=== PATIENT | male | born 1970 | race Caucasian/White ===

== ENCOUNTER 2018-12-20 09:09 | Inpatient (IN) | payer OTHER ==
[~2018-12-20] VITALS: Ht 177.8 cm; Wt 72.0 kg
[2018-12-20] VITALS (14 sets, daily range): BP systolic 109–156; BP diastolic 71–93; PULSE 61–84; RESP 14–24; Ht 177.8 cm; Wt 72.0 kg
[2018-12-20] MEDS ORDERED: NITROGLYCERIN 2% 1 GM OINT PKT TD STA (09:12)
[2018-12-20] MEDS ORDERED: NITROGLYCERIN (SL) 0.4 MG TAB SL PRN (09:30)
--- NOTE | 2018-12-20 09:37 | CONS ---
Assessment/Plan Assessment/Plan Hospital Course (Demo Recall) Anterior STEMI: chest pain x 1 hour Tobacco use -to pipelines laborer for emergent cath/PCI Consultation Date/Type/Reason Admit Date/Time Date of Consultation: Dec 20, 2018 Type of Consult Cardiology Reason for Consultation STEMI Requesting Provider: TOSHIA LITTLE MD Date/Time of Note DATE: 12/20/18 TIME: 09:34 Hx of Present Illness 48 yo M with a h/o smoking presenting with chest pain x 1 hour. He was found to have an anterior STEMI. No prior cardiac history per HPI Past Medical History per HPI Home Meds No Active Prescriptions or Reported Meds Medications Current Medications Nitroglycerin (Nitroglycerin (Sl Tab) 0.4 Mg) 1 tab Q5M UP TO 3 DOSES PRN SL .CHEST PAIN; Start 12/20/18 at 09:30 Allergies: Coded Allergies: No Known Allergy (Unverified , 12/20/18) Exam/Review of Systems Vital Signs Vitals Vital Signs Date Temp Pulse Resp B/P (MAP) Pulse Ox O2 O2 Flow FiO2 Time Delivery Rate 12/20/18 98.1 68 18 127/92 100 09:14 (104) Exam Constitutional: alert, oriented, distress (mild ) Psych: no complaints, nl mood/affect Head: normocephalic, atraumatic Neck: No jvd Respiratory: clear to auscultation, diminished breath sounds Cardiovascular: regular rate and rhythm; No edema, No systolic murmur Gastrointestinal: soft, non-tender; No distended Neurological: nl mental status, nl speech Medications Medications Current Medications Nitroglycerin (Nitroglycerin (Sl Tab) 0.4 Mg) 1 tab Q5M UP TO 3 DOSES PRN SL .CHEST PAIN; Start 12/20/18 at 09:30 SHARIF JARQUIN Dec 20, 2018 09:37
[2018-12-20] MEDS ORDERED: BIVALIRUDIN 250MG /NS 50 ML 50 ML IVPB ONE ×2 (09:40→10:49)
[2018-12-20] MEDS ORDERED: IODIXANOL LOCM 100 ML BTL ONE ×2 (09:41→10:24)
[2018-12-20] MEDS ORDERED: LIDOCAINE 1% (MDV) 20 ML INJ ONE (09:41)
[2018-12-20] MEDS ORDERED: TICAGRELOR 90 MG TABLET ONE (09:41)
[2018-12-20] MEDS ORDERED: IOHEXOL 350MG/ML 50 ML BTL ONE (09:41)
[2018-12-20] MEDS ORDERED: MIDAZOLAM 1 MG/ML 2 ML INJ ONE (09:42)
[2018-12-20] MEDS ORDERED: NITROGLYCERIN (IC) 100 MCG/ML INJ ONE (10:12)
[2018-12-20] MEDS ORDERED: FENTAnyl 50 MCG/ML VIAL ONE (10:28)
--- NOTE | 2018-12-20 11:29 | OPR ---
Date/Time of Note Date/Time of Note DATE: 12/20/18 TIME: 11:11 Operative Report Procedure Date: Dec 20, 2018 Preoperative Diagnosis STEMI Postoperative Diagnosis STEMI Operation/Procedure Performed see details Surgeon see signature line [employer] none Anesthesia Type: moderate sedation Estimated Blood Loss: minimal Transfusion none Specimen none Grafts/Implants none Complications none Procedure Description Procedure Date:12/20/2018 [employer] Director/surgeon: Sharif Velasquez MD. Procedures Performed: 1)Left heart catheterization with selective left and right coronary angiography. 2)Balloon angioplasty and stenting of the prox LAD with an Siddharth 2.75 x 15 stent. 3)Balloon angioplasty and stenting of the prox OM with an Siddharth 2.5 x 12 stent. 4)Angiography of the right femoral artery and Perclose closure device Pre-operative Diagnosis:anterior STEMI Post-operative Diagnosis:STEMI Indications: 48 yo M presenting with chest pain and anterior STEMI by EKG Description of Procedure: After informed consent, the patient was brought to the cardiac catheterization lab. The procedure site was prepped and draped in usual manner. The patient was premedicated with versed 1mg. 5 mL lidocaine was injected into the right groin. Next using the Seldinger technique, the 6 barbadian sheath was inserted into the right femoral artery. Next using the EBU 3.5 guide and JR4, selective angiography of the left and right coronary arteries were obtained. The decision was made to proceed with PCI of the prox LAD. After appropriate anticoagulation and antiplatelets were given, the BMW angioplasty wire was advanced past the lesion. Next the 2.0 X 12 balloon was used to dilate the lesion times 2 at a maximum of 8 stas. Subsequently, the Resolute Borger 2.75 x 15 stent was advanced to the lesion and deployed at 12 stas. Next the stent was post dilated with the 3.0 X 12 noncompliant balloon times 1 at a maximum of 12 stas. Final angiography revealed PAOLO 3 flow, no edge dissection, and appropriate stent expansion. Next the decision was made to also intervene on the OM lesion due to the severity of the lesion. A BMW wire was used to cross the lesion. Next the 2.0 x 8 balloon was used to dilate the lesion. Next the Resolute Siddharth 2.5 x 12 stent was deployed at nominal pressure. The stent was well opposed and was not post dilated. The pigtail was then advanced into the ventricle and hemodynamics obtained. Left ventricle angiography was not obtained. Next all equipment was removed and hemostasis was achieved by Perclose closure device after angiography confirmed proper placement of the sheath. Findings: Anatomy/Hemodynamics: Left main: luminal irregularities LAD: prox subtotal thrombotic occlusion with PAOLO 1 flow Diagonal:luminal irregularities Circumflex:luminal irregularities Obtuse marginal: prox 95% RCA:mid 70% PDA:luminal irregularities PLV:luminal irregularities LV angiography:not done LV-Ao:no significant gradient LVEDP: 28 mmHg Contrast used:190 mL Fluoroscopy time:9.5 min Medications used: Versed 1 Angiomax ASA given by EMS Brilinta 180mg NTG IC 200 x 1 Equipment used: 6 barbadian EBuU 3.5 guide BMW angioplasty wire 2 x 12 and 2 x 8 balloon Resolute Siddharth 2.75 x 15 drug eluting stent (LAD) Resolute Borger 2.5 x 12 drug eluting stent (OM) 3.0 x 12 noncompliant balloon Estimated blood loss<10 mL. Specimen: none Grafts/implants: none Complications: none Assessment: Anterior STEMI: s/p PCI of prox LAD CAD: s/p PCI of prox OM as well. Residual RCA will be treated medically for now with possible staged PCI as outpt unless symptoms prior to discharge Tobacco use Plan: -ASA 81mg lifelong -Brilinta 90mg BID x 1 yr -lipitor 80mg -metoprolol succ 25mg daily -lisinopril 5mg daily -SHARIF Ivy Dec 20, 2018 11:25
[2018-12-20] MEDS: METOPROLOL (XL) 25 MG TAB PO SCH (11:30)
--- NOTE | 2018-12-20 12:10 | ERD ---
ER Documentation Chief Complaint Chief Complaint chest pain started this morning HPI Patient is a 48-year-old male with no medical problems who presents with chest pain. The patient was brought in by ambulance. He was given aspirin and nitroglycerin by paramedics. The symptoms started 1 hour ago. The pain is left-sided. He has never had a heart attack before. The pain is been constant and pressure-like. He does not currently have a primary doctor. ROS All systems reviewed and are negative except as per history of present illness. Medications Home Meds No Active Prescriptions or Reported Meds Allergies Allergies: Coded Allergies: No Known Allergy (Unverified , 12/20/18) PMhx/Soc Medical and Surgical Hx: pt denies Medical Hx, pt denies Surgical Hx Hx Alcohol Use: Yes Hx Substance Use: No Hx Tobacco Use: Yes Smoking Status: Current every day smoker FmHx Family History: No coronary disease Physical Exam Vitals Vital Signs Date Temp Pulse Resp B/P (MAP) Pulse Ox O2 O2 Flow FiO2 Time Delivery Rate 12/20/18 98.1 68 18 127/92 100 09:14 (104) Physical Exam Const: Mild distress Head: Atraumatic Eyes: Normal Conjunctiva ENT: Normal External Ears, Nose and Mouth. Neck: Full range of motion. No meningismus. Resp: Clear to auscultation bilaterally Cardio: Regular rate and rhythm, no murmurs Abd: Soft, non tender, non distended. Normal bowel sounds Skin: Pale with mild diaphoresis Back: No midline or flank tenderness Ext: No cyanosis, or edema Neur: Awake and alert Psych: Normal Mood and Affect Result Diagram: 12/20/1892712/20/1828 Results 24 hrs Laboratory Tests Test 12/20/18 09:28 White Blood Count 9.4 10^3/ul Red Blood Count 4.74 10^6/ul Hemoglobin 15.1 g/dl Hematocrit 44.3 % Mean Corpuscular Volume 93.5 fl Mean Corpuscular Hemoglobin 31.9 pg Mean Corpuscular Hemoglobin Concent 34.1 g/dl Red Cell Distribution Width 12.4 % Platelet Count 302 10^3/UL Mean Platelet Volume 9.8 fl Immature Granulocytes % 0.400 % Neutrophils % 51.2 % Lymphocytes % 39.8 % Monocytes % 6.0 % Eosinophils % 2.0 % Basophils % 0.6 % Nucleated Red Blood Cells % 0.0 /100WBC Immature Granulocytes # 0.040 10^3/ul Neutrophils # 4.8 10^3/ul Lymphocytes # 3.7 10^3/ul Monocytes # 0.6 10^3/ul Eosinophils # 0.2 10^3/ul Basophils # 0.1 10^3/ul Nucleated Red Blood Cells # 0.0 10^3/ul Sodium Level 140 mmol/L Potassium Level 4.0 mmol/L Chloride Level 109 mmol/L Carbon Dioxide Level 22 mmol/L Anion Gap 9 Blood Urea Nitrogen 17 mg/dl Creatinine 0.80 mg/dl Est Glomerular Filtrat Rate mL/min > 60 mL/min Glucose Level 175 mg/dl Calcium Level 9.7 mg/dl Troponin I < 0.012 ng/ml Current Medications Medications Dose Sig/Yonatan Start Time Status Last (Trade) Ordered Route PRN Stop Time Admin Dose Reason Admin 1 inch ONCE STAT 12/20/18 DC Nitroglycerin TD 09:12 12/20/18 09:13 (Nitroglyceri n 2% Oint) 1 tab Q5M UP TO 3 12/20/18 Nitroglycerin DOSES PRN 09:30 SL .CHEST (Nitroglyceri PAIN n (Sl Tab) 0.4 Mg) Procedures/MDM EKG read by me: Rate/Rhythm: Regular rate and rhythm at a normal rate Intervals: Normal Impression: ST elevations in leads V1 and V2 with reciprocal changes consistent with STEMI. Chest X-ray 1V Interpreted by me: Soft Tissue: No acute abnormalities Bones: No acute abnormalities Mediastinum/Cardiac Silhouette/Lungs: No acute abnormalities Smoking Cessation Therapy: Pt. was lectured for greater than 3 minutes on the health risks of continued smoking and the benefits of cessation. Patient is a 48-year-old male with smoking history who presents with STEMI. The patient was given aspirin and nitroglycerin by paramedics. A code STEMI was called at 9:20 AM when I reviewed the EKG. Dr. Galan was called immediately but I spoke with him and he said that Dr. Velasquez is covering for him. Dr. Velasquez came directly to the bedside and agreed to take the patient to the cardiac Auditing Clerk. The patient was transferred to the cardiac Auditing Clerk at 9:30 AM. He will be admitted to the intensive care unit to the panel team as he does not currently have a primary doctor and has never been admitted before. I doubt pneumothorax, pneumonia, pulmonary embolism, or aortic dissection. Critical Care: Time: 35 minutes excluding all billable procedures. Treatments/Evaluations: Close monitoring and treatment of unstable vital signs, cardiorespiratory, and neurologic status, while maintaining tight balance of fluid, respiratory, and cardiac interventions. Departure Diagnosis: Primary Impression: STEMI (ST elevation myocardial infarction) Involved coronary artery: unspecified coronary artery Qualified Codes: I21.3 - ST elevation (STEMI) myocardial infarction of unspecified site Condition: Critical TOSHIA LITTLE MD Dec 20, 2018 12:10
[2018-12-20] MEDS ORDERED: ONDANSETRON 4 MG INJ IV PRN (13:00)
[2018-12-20] MEDS ORDERED: ACETAMINOPHEN 325 MG TAB PO PRN (13:00)
[2018-12-20] MEDS ORDERED: HYDROCODONE/APAP (5/325) TAB PO PRN (13:00)
[2018-12-20] MEDS ORDERED: morphine 2 MG INJ IV PRN (13:00)
[2018-12-20] MEDS ORDERED: MAGNESIUM HYDROXIDE 30ML CUP PO PRN (13:00)
[2018-12-20] MEDS ORDERED: DOCUSATE SODIUM 100 MG CAP PO PRN (13:00)
[2018-12-20] MEDS ORDERED: ALBUTEROL/IPRATROPIUM (NEB) 3 ML AMP HHN PRN (13:00)
[2018-12-20] MEDS ORDERED: NACL 0.9% 3 ML SYG IV SCH (13:00)
--- NOTE | 2018-12-20 16:53 | HP ---
Date/Time of Note Date/Time of Note DATE: 12/20/18 TIME: 16:49 Assessment/Plan VTE Prophylaxis SCD applied (from Nsg): Yes Pharmacological prophylaxis: other Lines/Catheters IV Catheter Type (from Nrsg): Peripheral IV Urinary Cath still in place: No Assessment/Plan Hospital Course Assessment and plan: 48-year-old male with positive smoking history presenting with chest pain found with ST elevation OH status post stent placement to the circumflex and LAD earlier today. #Chest pain: Secondary to ST elevation OH. Again status post left heart catheterization and stenting performed to the LAD and circumflex artery. Also, found with possible blockage to the RCA which will be medically managed at this time. -Continue ICU care for now per cardiology recommendation, monitor vital signs very carefully - continue aspirin, Brilinta, statin, as well as BEATRICE inhibitor beta-alison -Nicotine patch for smoking history #Smoking history: Patient strongly encouraged to quit smoking especially given ST elevation OH event earlier today. -Again will also order for nicotine patch Result Diagram: 12/20/1828 12/20/18927 Results 24hrs Laboratory Tests Test 12/20/18 09:28 12/20/18 15:55 White Blood Count 9.4 Red Blood Count 4.74 Hemoglobin 15.1 Hematocrit 44.3 Mean Corpuscular Volume 93.5 Mean Corpuscular Hemoglobin 31.9 Mean Corpuscular Hemoglobin Concent 34.1 Red Cell Distribution Width 12.4 Platelet Count 302 Mean Platelet Volume 9.8 Immature Granulocytes % 0.400 Neutrophils % 51.2 Lymphocytes % 39.8 Monocytes % 6.0 Eosinophils % 2.0 Basophils % 0.6 Nucleated Red Blood Cells % 0.0 Immature Granulocytes # 0.040 H Neutrophils # 4.8 Lymphocytes # 3.7 H Monocytes # 0.6 Eosinophils # 0.2 Basophils # 0.1 Nucleated Red Blood Cells # 0.0 Sodium Level 140 Potassium Level 4.0 Chloride Level 109 Carbon Dioxide Level 22 Anion Gap 9 Blood Urea Nitrogen 17 Creatinine 0.80 Est Glomerular Filtrat Rate mL/min > 60 Glucose Level 175 Hemoglobin A1c 5.2 Calcium Level 9.7 Troponin I < 0.012 Pending Free Thyroxine 0.79 Creatine Kinase Pending Creatine Kinase Index Pending Creatinine Kinase MB (Mass) 180.00 H HPI/ROS Admit Date/Time Admit Date/Time Hx of Present Illness 48-year-old male with likely [id number] smoking history minimum who presents with chest pain. Pain started earlier today, substernal in nature. The pain was left-sided. The pain was described as constant and pressure-like. No fever chills, diarrhea constipation, nausea vomiting, or upper or lower GI bleeding. He has never had a heart attack before. He does not currently have a primary doctor. No prior history of any stroke or heart attack. The patient was brought in by ambulance. He was given aspirin and nitroglycerin by paramedics. When he arrived he was found ST elevation OH and patient was seen by household appliance mechanic immediately who took the patient for left heart catheterization. Patient had PCI of prox LAD And PCI of prox OM as well today. Of note, patient also found with residual RCA which will be treated medically for now with possible staged PCI as outpt unless symptoms prior to discharge, per cardiology recommendations. PMH/Family/Social Past Medical History Medications Current Medications Nitroglycerin (Nitroglycerin (Sl Tab) 0.4 Mg) 1 tab Q5M UP TO 3 DOSES PRN SL .CHEST PAIN; Start 12/20/18 at 09:30 Aspirin (Aspirin) 81 mg DAILY PO ; Start 12/21/18 at 09:00 Ticagrelor (Brilinta) 90 mg BID PO ; Start 12/20/18 at 21:00 Atorvastatin Calcium (Lipitor) 80 mg QHS PO ; Start 12/20/18 at 21:00 Lisinopril (Zestril) 5 mg DAILY PO ; Start 12/21/18 at 09:00 Metoprolol Succinate (Toprol Xl) 25 mg DAILY PO ; Start 12/20/18 at 11:30 IV Flush (NS 3 ml) 3 ml PER PROTOCOL IV ; Start 12/20/18 at 13:00 Ondansetron HCl (Zofran Inj) 4 mg Q6H PRN IV NAUSEA/VOMITING; Start 12/20/18 at 13:00 Acetaminophen (Tylenol Tab) 650 mg Q6H PRN PO .PAIN 1-3 OR TEMP; Start 12/20/18 at 13:00 Acetaminophen/ Hydrocodone Bitart ([place] (5/325)) 1 tab Q6H PRN PO .MOD PAIN 4- 6; Start 12/20/18 at 13:00 Morphine Sulfate (morphine) 2 mg Q4H PRN IV .SEVERE PAIN 7-10; Start 12/20/18 at 13:00 Docusate Sodium (Colace) 100 mg Q12H PRN PO .CONSTIPATION; Start 12/20/18 at 13:00 Magnesium Hydroxide (Milk Of Mag) 30 ml DAILY PRN PO .CONSTIPATION; Start 12/20/18 at 13:00 Albuterol/ Ipratropium (Duoneb) 3 ml Q4H RESP THERAPY PRN HHN SHORTNESS OF BR EATH; Start 12/20/18 at 13:00 Nicotine (Nicoderm 21 Mg/ 24hr) 1 patch DAILY TRANSDERM ; Start 12/20/18 at 17:00 Coded Allergies: No Known Allergy (Unverified , 12/20/18) Social History Alcohol Use: occasionally Smoking Status: Current every day smoker (Minimum [id number] smoking history) Drug Use: none Exam/Review of Systems Vital Signs Vitals Vital Signs Date Temp Pulse Resp B/P (MAP) Pulse Ox O2 O2 Flow FiO2 Time Delivery Rate 12/20/18 66 16:00 12/20/18 17 118/74 100 Nasal 1.0 14:00 (89) Cannula 12/20/18 98.3 12:00 Exam Exam Constitutional: alert, oriented, no acute distress presently, family at bedside Psych: no complaints, nl mood/affect Head: normocephalic, atraumatic Neck: No jvd Respiratory: clear to auscultation, diminished breath sounds Cardiovascular: regular rate and rhythm; No edema, No systolic murmur Gastrointestinal: soft, non-tender; No distended Neurological: nl mental status, nl speech ANU CORTÉS Dec 20, 2018 16:53
[2018-12-20] MEDS: NICOTINE (21 MG/24 HR) PATCH TRANSDERM SCH (17:00)
[2018-12-20] MEDS ORDERED: TICAGRELOR 90 MG TABLET PO SCH (21:00)
[2018-12-20] MEDS: ATORVASTATIN 80 MG TAB PO SCH (21:00)
[2018-12-21] VITALS (19 sets, daily range): BP systolic 90–120; BP diastolic 54–92; PULSE 63–76; RESP 14–22
--- NOTE | 2018-12-21 07:38 | RADRPT ---
Echocardiogram Report Patient Name: RALPH ARRIETAatient ID: [id number] : 1970 (48y 3m)Study Date: 12/20/2018 11:35:18 AM Gender: MAccession #: [id number] Tech: Min Turner RDCS Location: [facility] Ref.Physician: SHARIF VELASQUEZ Height(Cm): BSA: Weight(Kg): Quality: AdequateAccount #: Procedures: Echocardiographic Report: Transthoracic echocardiogram with complete 2D, M-Mode, and doppler examination. Indications: STEMI. Measurements: 2D/M Mode Doppler Measurement Value Normal Range Measurement Value Normal Range LVIDd 2D 4.2 [ 4.2 - 5.8 ] cm AV Peak Ishan 1.3 [ 100.0 - 170.0 ] cm/sec LVIDs 2D 2.5 [ 2.5 - 4.0 ] cm AV Peak PG 7.0 [ 2.0 - 9.0 ] mmHg LVPWd 2D 1.1 [ 0.6 - 1.0 ] cm LVOT Peak Ishan 1.2 [ 70.0 - 110.0 ] cm/sec IVSd 2D 1.2 [ 0.6 - 1.0 ] cm LVOT Peak PG 6.0 [ 2.0 - 6.0 ] mmHg AoR Diam 2D 2.5 [ 2.6 - 3.4 ] cm MV E Peak Ishan 1.1 [ 60.0 - 130.0 ] cm/sec EDV 2D 76.8 [ 62.0 - 150.0 ] ml MV A Peak Ishan 0.6 [ 100.0 - 120.0 ] cm/sec ESV 2D 23.2 [ 21.0 - 61.0 ] ml MV E/A 1.7 [ 0.8 - 1.5 ] ratio EF 2D 69.8 [ 52.0 - 72.0 ] percent MV Decel Time 155 [ 104 - 258 ] msec LA Dimen 2D 3.2 [ 3.0 - 4.0 ] cm Lat E` Ishan 0.1 [ 10.0 - 15.0 ] cm/sec Lateral E/E` 8.8 [ 1.0 - 2.0 ] ratio MV E/A 1.7 [ 0.8 - 1.5 ] ratio TR Peak Ishan 2.5 [ 100.0 - 280.0 ] cm/sec TR Peak PG 25.0 mmHg RVSP 28.0 [ 10.0 - 36.0 ] mmHg RA Pressure 3.0 mmHg Findings: Left Ventricle: Normal left ventricular cavity size. Mild concentric left ventricular hypertrophy. Mild left ventricular systolic dysfunction. Ejection fraction is visually estimated at 45 %. Tissue Doppler/Mitral Doppler indices are within normal limits. Mild hypokinesis of the anterior wall, distal septum, and apex. Right Ventricle: Normal right ventricular size. Normal right ventricular systolic function. Left Atrium: The left atrium is normal in size. Right Atrium: The right atrium is normal in size. Mitral Valve: Normal appearance and function of the mitral valve with trace physiologic regurgitation. Aortic Valve: Normal appearance of the aortic valve. No significant aortic stenosis or insufficiency. Tricuspid Valve: Normal appearance of the tricuspid valve. Estimated peak PA systolic pressure 28 mmHg. There is mild tricuspid regurgitation. Pulmonic Valve: Normal pulmonic valve appearance. Pericardium: Normal pericardium with no significant pericardial effusion. Aorta: Normal aortic root. IVC: Normal size and normal respiratory collapse consistent with normal right atrial pressure. Conclusions: Normal left ventricular cavity size. Mild concentric left ventricular hypertrophy. Mild left ventricular systolic dysfunction. Ejection fraction is visually estimated at 45 %. Tissue Doppler/Mitral Doppler indices are within normal limits. Mild hypokinesis of the anterior wall, distal septum, and apex. No significant valvular stenosis or regurgitation seen. Estimated peak PA systolic pressure 28 mmHg. Normal size and normal respiratory collapse consistent with normal right atrial pressure. Electronically Signed By: Sharif Velasquez 2018-12-21 07:38:00 PDT
[2018-12-21] MEDS ORDERED: CLOPIDOGREL 75 MG TAB PO ONE (08:00)
--- NOTE | 2018-12-21 08:32 | CONS ---
Assessment/Plan Assessment/Plan Hospital Course (Demo Recall) Anterior STEMI: s/p PCI of prox LAD. EF 45% CAD: s/p PCI of prox OM as well. Residual RCA will be staged while pt is inpt as he may be lost to follow up due to insurance Tobacco use -staged PCI of RCA tomorrow 7:30 am -ASA 81mg lifelong -switch to plavix as Brilinta is not covered. Plavix 300mg load today, then 75mg daily -lipitor 80mg -metoprolol succ 25mg daily as tolerated -lisinopril 5mg daily as tolerated Consultation Date/Type/Reason Admit Date/Time Dec 20, 2018 at 12:36 Initial Consult Date 12/20/18 Type of Consult Cardiology Requesting Provider: TOSHIA LITTLE MD Date/Time of Note DATE: 12/21/18 TIME: 08:28 24 HR Interval Summary Free Text/Dictation No issues. No chest pain. No complaints Exam/Review of Systems Vital Signs Vitals Vital Signs Date Temp Pulse Resp B/P (MAP) Pulse Ox O2 O2 Flow FiO2 Time Delivery Rate 12/21/18 98.9 69 17 108/73 98 Room Air 07:00 (85) 12/20/18 1.0 14:00 Intake and Output 12/20/18 12/20/18 12/21/18 1515:00 23:00 07:00 IntakeIntake Total 300 ml OutputOutput Total 1400 ml 400 ml BalanceBalance 300 ml -1400 ml -400 ml Exam Constitutional: alert, oriented, well developed Psych: no complaints, nl mood/affect Head: normocephalic, atraumatic Neck: No jvd Respiratory: clear to auscultation; No crackles/rales Cardiovascular: regular rate and rhythm; No edema, No systolic murmur Gastrointestinal: soft, non-tender; No distended Musculoskeletal: nl extremities to inspection Extremities: other (right groin no hematoma or bruit ) Neurological: nl mental status, nl speech Labs Result Diagram: 12/21/18 0444 12/21/18 0443 Results 24hrs Laboratory Tests Test 12/20/18 09:28 12/20/18 15:55 12/20/18 21:17 12/21/18 04:43 White Blood Count 9.4 Red Blood Count 4.74 Hemoglobin 15.1 Hematocrit 44.3 Mean Corpuscular 93.5 Volume Mean Corpuscular 31.9 Hemoglobin Mean Corpuscular 34.1 Hemoglobin Concent Red Cell 12.4 Distribution Width Platelet Count 302 Mean Platelet Volume 9.8 Immature 0.400 Granulocytes % Neutrophils % 51.2 Lymphocytes % 39.8 Monocytes % 6.0 Eosinophils % 2.0 Basophils % 0.6 Nucleated Red Blood 0.0 Cells % Immature 0.040 H Granulocytes # Neutrophils # 4.8 Lymphocytes # 3.7 H Monocytes # 0.6 Eosinophils # 0.2 Basophils # 0.1 Nucleated Red Blood 0.0 Cells # Sodium Level 140 141 Potassium Level 4.0 4.1 Chloride Level 109 111 H Carbon Dioxide Level 22 23 Anion Gap 9 7 Blood Urea Nitrogen 17 10 Creatinine 0.80 0.73 Est Glomerular > 60 > 60 Filtrat Rate mL/min Glucose Level 175 122 # Hemoglobin A1c 5.2 5.1 Calcium Level 9.7 9.7 Troponin I < 0.012 152.000 *H 94.300 *H Free Thyroxine 0.79 Creatine Kinase 4663 H 2477 H Creatine Kinase 3.9 4.5 Index Creatinine Kinase MB 180.00 H 111.00 H (Mass) Phosphorus Level 3.8 Magnesium Level 2.0 Triglycerides Level 171 H Cholesterol Level 291 H LDL Cholesterol, 214 Calculated HDL Cholesterol 43 Cholesterol/HDL 6.7 Ratio Thyroid Stimulating Pending Hormone (TSH) Test 12/21/18 04:44 White Blood Count 14.3 #H Red Blood Count 4.60 L Hemoglobin 14.9 Hematocrit 42.3 Mean Corpuscular 92.0 Volume Mean Corpuscular 32.4 Hemoglobin Mean Corpuscular 35.2 Hemoglobin Concent Red Cell 12.9 Distribution Width Platelet Count 296 Mean Platelet Volume 10.2 Immature 0.500 H Granulocytes % Neutrophils % 71.1 Lymphocytes % 20.7 Monocytes % 6.7 Eosinophils % 0.7 Basophils % 0.3 Nucleated Red Blood 0.0 Cells % Immature 0.070 H Granulocytes # Neutrophils # 10.1 H Lymphocytes # 3.0 H Monocytes # 1.0 H Eosinophils # 0.1 Basophils # 0.0 Nucleated Red Blood 0.0 Cells # Medications Medications Current Medications Nitroglycerin (Nitroglycerin (Sl Tab) 0.4 Mg) 1 tab Q5M UP TO 3 DOSES PRN SL .CHEST PAIN; Start 12/20/18 at 09:30 Aspirin (Aspirin) 81 mg DAILY PO ; Start 12/21/18 at 09:00 Atorvastatin Calcium (Lipitor) 80 mg QHS PO Last administered on 12/20/18at 21:00; Admin Dose 80 MG; Start 12/20/18 at 21:00 Lisinopril (Zestril) 5 mg DAILY PO ; Start 12/21/18 at 09:00 Metoprolol Succinate (Toprol Xl) 25 mg DAILY PO ; Start 12/20/18 at 11:30 IV Flush (NS 3 ml) 3 ml PER PROTOCOL IV ; Start 12/20/18 at 13:00 Ondansetron HCl (Zofran Inj) 4 mg Q6H PRN IV NAUSEA/VOMITING; Start 12/20/18 at 13:00 Acetaminophen (Tylenol Tab) 650 mg Q6H PRN PO .PAIN 1-3 OR TEMP; Start 12/20/18 at 13:00 Acetaminophen/ Hydrocodone Bitart ([place] (5/325)) 1 tab Q6H PRN PO .MOD PAIN 4- 6; Start 12/20/18 at 13:00 Morphine Sulfate (morphine) 2 mg Q4H PRN IV .SEVERE PAIN 7-10; Start 12/20/18 at 13:00 Docusate Sodium (Colace) 100 mg Q12H PRN PO .CONSTIPATION; Start 12/20/18 at 13:00 Magnesium Hydroxide (Milk Of Mag) 30 ml DAILY PRN PO .CONSTIPATION; Start 12/20/18 at 13:00 Albuterol/ Ipratropium (Duoneb) 3 ml Q4H RESP THERAPY PRN HHN SHORTNESS OF BREATH; Start 12/20/18 at 13:00 Nicotine (Nicoderm 21 Mg/ 24hr) 1 patch DAILY TRANSDERM ; Start 12/20/18 at 17:00 Clopidogrel Bisulfate (plaVIX) 75 mg DAILY PO ; Start 12/22/18 at 09:00 SHARIF JARQUIN Dec 21, 2018 08:32
[2018-12-21] MEDS: METOPROLOL (XL) 25 MG TAB PO SCH (08:40)
[2018-12-21] MEDS: ASPIRIN 81 MG TAB PO SCH (08:41)
[2018-12-21] MEDS: NICOTINE (21 MG/24 HR) PATCH TRANSDERM SCH (08:44)
[2018-12-21] MEDS ORDERED: LISINOPRIL 5 MG TAB PO SCH (09:00)
--- NOTE | 2018-12-21 09:05 | PN ---
Date/Time of Note Date/Time of Note DATE: 12/21/18 TIME: 09:00 Assessment/Plan VTE Prophylaxis Risk score (from Ns)>0 risk: 9 SCD applied (from Nsg): Yes Pharmacological prophylaxis: other Lines/Catheters IV Catheter Type (from Nrsg): Peripheral IV Urinary Cath still in place: No Assessment/Plan Hospital Course S: Patient had no acute events overnight, seen by cardiology team this morning, and awaiting possible stent procedure on this RCA lesion in the next 24 hours. Per nursing staff, patient refused nicotine patch yesterday. O: VS - see below PE: Constitutional: alert, oriented, no acute distress presently Psych: no complaints, nl mood/affect Head: normocephalic, atraumatic Neck: No jvd Respiratory: clear to auscultation, diminished breath sounds Cardiovascular: regular rate and rhythm; No edema, No systolic murmur Gastrointestinal: soft, non-tender; No distended Neurological: no focal deficits Assessment and plan: 48-year-old male with positive smoking history presenting with chest pain found with ST elevation ID status post stent placement to the circumflex and LAD this admission. #Chest pain: Secondary to ST elevation ID. Again status post left heart catheterization and stenting performed to the LAD and circumflex artery. Also, found with possible blockage to the RCA. -Follow-up cardiology recommendation, monitor vital signs very carefully -for possible stenting procedure RCA lesion in the next 24 hours -continue aspirin, Brilinta, statin, as well as BEATRICE inhibitor beta-alison -Nicotine patch for smoking history -although again patient refused this yesterday #Smoking history: Patient strongly encouraged to quit smoking especially given ST elevation ID event - nicotine patch ordered Critical care time spent on patient care today equals 45 minutes. Result Diagram: 12/21/18 0444 12/21/18 0443 Results 24hrs Laboratory Tests Test 12/20/18 09:28 12/20/18 15:55 12/20/18 21:17 12/21/18 04:43 White Blood Count 9.4 Red Blood Count 4.74 Hemoglobin 15.1 Hematocrit 44.3 Mean Corpuscular 93.5 Volume Mean Corpuscular 31.9 Hemoglobin Mean Corpuscular 34.1 Hemoglobin Concent Red Cell 12.4 Distribution Width Platelet Count 302 Mean Platelet Volume 9.8 Immature 0.400 Granulocytes % Neutrophils % 51.2 Lymphocytes % 39.8 Monocytes % 6.0 Eosinophils % 2.0 Basophils % 0.6 Nucleated Red Blood 0.0 Cells % Immature 0.040 H Granulocytes # Neutrophils # 4.8 Lymphocytes # 3.7 H Monocytes # 0.6 Eosinophils # 0.2 Basophils # 0.1 Nucleated Red Blood 0.0 Cells # Sodium Level 140 141 Potassium Level 4.0 4.1 Chloride Level 109 111 H Carbon Dioxide Level 22 23 Anion Gap 9 7 Blood Urea Nitrogen 17 10 Creatinine 0.80 0.73 Est Glomerular > 60 > 60 Filtrat Rate mL/min Glucose Level 175 122 # Hemoglobin A1c 5.2 5.1 Calcium Level 9.7 9.7 Troponin I < 0.012 152.000 *H 94.300 *H Free Thyroxine 0.79 Creatine Kinase 4663 H 2477 H Creatine Kinase 3.9 4.5 Index Creatinine Kinase MB 180.00 H 111.00 H (Mass) Phosphorus Level 3.8 Magnesium Level 2.0 Triglycerides Level 171 H Cholesterol Level 291 H LDL Cholesterol, 214 Calculated HDL Cholesterol 43 Cholesterol/HDL 6.7 Ratio Thyroid Stimulating Pending Hormone (TSH) Test 12/21/18 04:44 White Blood Count 14.3 #H Red Blood Count 4.60 L Hemoglobin 14.9 Hematocrit 42.3 Mean Corpuscular 92.0 Volume Mean Corpuscular 32.4 Hemoglobin Mean Corpuscular 35.2 Hemoglobin Concent Red Cell 12.9 Distribution Width Platelet Count 296 Mean Platelet Volume 10.2 Immature 0.500 H Granulocytes % Neutrophils % 71.1 Lymphocytes % 20.7 Monocytes % 6.7 Eosinophils % 0.7 Basophils % 0.3 Nucleated Red Blood 0.0 Cells % Immature 0.070 H Granulocytes # Neutrophils # 10.1 H Lymphocytes # 3.0 H Monocytes # 1.0 H Eosinophils # 0.1 Basophils # 0.0 Nucleated Red Blood 0.0 Cells # Exam/Review of Systems Exam Vitals Vital Signs Date Temp Pulse Resp B/P (MAP) Pulse Ox O2 O2 Flow FiO2 Time Delivery Rate 12/21/18 74 08:00 12/21/18 98.9 17 108/73 98 Room Air 07:00 (85) 12/20/18 1.0 14:00 Intake and Output 12/20/18 12/20/18 12/21/18 1515:00 23:00 07:00 IntakeIntake Total 300 ml OutputOutput Total 1400 ml 400 ml BalanceBalance 300 ml -1400 ml -400 ml Results Results 24hrs Laboratory Tests Test 12/20/18 09:28 12/20/18 15:55 12/20/18 21:17 12/21/18 04:43 White Blood Count 9.4 Red Blood Count 4.74 Hemoglobin 15.1 Hematocrit 44.3 Mean Corpuscular 93.5 Volume Mean Corpuscular 31.9 Hemoglobin Mean Corpuscular 34.1 Hemoglobin Concent Red Cell 12.4 Distribution Width Platelet Count 302 Mean Platelet Volume 9.8 Immature 0.400 Granulocytes % Neutrophils % 51.2 Lymphocytes % 39.8 Monocytes % 6.0 Eosinophils % 2.0 Basophils % 0.6 Nucleated Red Blood 0.0 Cells % Immature 0.040 H Granulocytes # Neutrophils # 4.8 Lymphocytes # 3.7 H Monocytes # 0.6 Eosinophils # 0.2 Basophils # 0.1 Nucleated Red Blood 0.0 Cells # Sodium Level 140 141 Potassium Level 4.0 4.1 Chloride Level 109 111 H Carbon Dioxide Level 22 23 Anion Gap 9 7 Blood Urea Nitrogen 17 10 Creatinine 0.80 0.73 Est Glomerular > 60 > 60 Filtrat Rate mL/min Glucose Level 175 122 # Hemoglobin A1c 5.2 5.1 Calcium Level 9.7 9.7 Troponin I < 0.012 152.000 *H 94.300 *H Free Thyroxine 0.79 Creatine Kinase 4663 H 2477 H Creatine Kinase 3.9 4.5 Index Creatinine Kinase MB 180.00 H 111.00 H (Mass) Phosphorus Level 3.8 Magnesium Level 2.0 Triglycerides Level 171 H Cholesterol Level 291 H LDL Cholesterol, 214 Calculated HDL Cholesterol 43 Cholesterol/HDL 6.7 Ratio Thyroid Stimulating Pending Hormone (TSH) Test 12/21/18 04:44 White Blood Count 14.3 #H Red Blood Count 4.60 L Hemoglobin 14.9 Hematocrit 42.3 Mean Corpuscular 92.0 Volume Mean Corpuscular 32.4 Hemoglobin Mean Corpuscular 35.2 Hemoglobin Concent Red Cell 12.9 Distribution Width Platelet Count 296 Mean Platelet Volume 10.2 Immature 0.500 H Granulocytes % Neutrophils % 71.1 Lymphocytes % 20.7 Monocytes % 6.7 Eosinophils % 0.7 Basophils % 0.3 Nucleated Red Blood 0.0 Cells % Immature 0.070 H Granulocytes # Neutrophils # 10.1 H Lymphocytes # 3.0 H Monocytes # 1.0 H Eosinophils # 0.1 Basophils # 0.0 Nucleated Red Blood 0.0 Cells # Medications Medication Current Medications Nitroglycerin (Nitroglycerin (Sl Tab) 0.4 Mg) 1 tab Q5M UP TO 3 DOSES PRN SL .CHEST PAIN; Start 12/20/18 at 09:30 Aspirin (Aspirin) 81 mg DAILY PO Last administered on 12/21/18at 08:41; Admin Dose 81 MG; Start 12/21/18 at 09:00 Atorvastatin Calcium (Lipitor) 80 mg QHS PO Last administered on 12/20/18at 21:00; Admin Dose 80 MG; Start 12/20/18 at 21:00 Lisinopril (Zestril) 5 mg DAILY PO Last administered on 12/21/18at 08:41; Admin Dose 5 MG; Start 12/21/18 at 09:00 Metoprolol Succinate (Toprol Xl) 25 mg DAILY PO Last administered on 12/21/18at 08:40; Admin Dose 25 MG; Start 12/20/18 at 11:30 IV Flush (NS 3 ml) 3 ml PER PROTOCOL IV ; Start 12/20/18 at 13:00 Ondansetron HCl (Zofran Inj) 4 mg Q6H PRN IV NAUSEA/VOMITING; Start 12/20/18 at 13:00 Acetaminophen (Tylenol Tab) 650 mg Q6H PRN PO .PAIN 1-3 OR TEMP; Start 12/20/18 at 13:00 Acetaminophen/ Hydrocodone Bitart ([place] (5/325)) 1 tab Q6H PRN PO .MOD PAIN 4- 6; Start 12/20/18 at 13:00 Morphine Sulfate (morphine) 2 mg Q4H PRN IV .SEVERE PAIN 7-10; Start 12/20/18 at 13:00 Docusate Sodium (Colace) 100 mg Q12H PRN PO .CONSTIPATION; Start 12/20/18 at 13:00 Magnesium Hydroxide (Milk Of Mag) 30 ml DAILY PRN PO .CONSTIPATION; Start 12/20/18 at 13:00 Albuterol/ Ipratropium (Duoneb) 3 ml Q4H RESP THERAPY PRN HHN SHORTNESS OF BREATH; Start 12/20/18 at 13:00 Nicotine (Nicoderm 21 Mg/ 24hr) 1 patch DAILY TRANSDERM ; Start 12/20/18 at 17:00 Clopidogrel Bisulfate (plaVIX) 75 mg DAILY PO ; Start 12/22/18 at 09:00 ANU CORTÉS Dec 21, 2018 09:05
[2018-12-21] MEDS: ATORVASTATIN 80 MG TAB PO SCH (21:46)
[2018-12-22] VITALS (26 sets, daily range): BP systolic 83–101; BP diastolic 50–93; PULSE 52–80; RESP 11–26
[2018-12-22] MEDS: ASPIRIN 81 MG TAB PO SCH (06:40)
[2018-12-22] MEDS: CLOPIDOGREL 75 MG TAB PO SCH (07:00)
[2018-12-22] MEDS ORDERED: VERAPAMIL 5 MG INJ ONE (07:09)
[2018-12-22] MEDS ORDERED: BIVALIRUDIN 250MG /NS 50 ML 50 ML IVPB ONE ×3 (07:09→07:42)
[2018-12-22] MEDS ORDERED: FENTAnyl 50 MCG/ML VIAL ONE (07:09)
[2018-12-22] MEDS ORDERED: HEPARIN 1000 UNITS/ML 10 ML INJ ONE (07:09)
[2018-12-22] MEDS ORDERED: NITROGLYCERIN (IC) 100 MCG/ML INJ ONE (07:09)
[2018-12-22] MEDS ORDERED: MIDAZOLAM 1 MG/ML 2 ML INJ ONE (07:09)
[2018-12-22] MEDS ORDERED: CLOPIDOGREL 300 MG TAB ONE (07:24)
[2018-12-22] MEDS ORDERED: IOHEXOL 350MG/ML 50 ML BTL ONE (07:58)
[2018-12-22] MEDS ORDERED: IODIXANOL LOCM 100 ML BTL ONE (07:58)
--- NOTE | 2018-12-22 08:14 | OPR ---
Date/Time of Note Date/Time of Note DATE: 12/22/18 TIME: 08:02 Operative Report Procedure Date: Dec 22, 2018 Preoperative Diagnosis staged PCI post STEMI Postoperative Diagnosis same Operation/Procedure Performed see details Surgeon see signature line Lab Aid none Anesthesia Type: moderate sedation Estimated Blood Loss: minimal Transfusion none Specimen none Grafts/Implants none Complications none Procedure Description Procedure Date:12/22/2018 Color Maker Formulator/surgeon: Sharif Velasquez MD. Procedures Performed: 1)Balloon angioplasty and stenting of the mid RC A with a [place] 2.75 x 18 stent. Pre-operative Diagnosis:staged PCI post STEMI for complete revascularization Post-operative Diagnosis:same Indications: 48 yo M s/p anterior STEMI 2 days prior with PCI of prox LAD and OM, with residual RCA lesion. PCI for complete revascularization Description of Procedure: After informed consent, the patient was brought to the cardiac catheterization lab. The procedure site was prepped and draped in usual manner. The patient was premedicated with versed 1 mg and fentanyl 25 mcg. 3 mL lidocaine was injected into the right wrist. Next using the posterior wall technique, the 6/5 [place] sheath was inserted into the right radial artery. A 6 [place] JR4 guide was advanced and engaged into the left/right coronary artery. After appropriate anticoagulation and antiplatelets were given, the BMW angioplasty wire was advanced past the lesion. Next the 2.0 X 12 balloon was used to dilate the lesion times 1 at a maximum of 8 stas. Subsequently, the Resolute [place]acul[place] 2.75 x 18 stent was advanced to the lesion and deployed at 12 stas. Next the stent was post dilated with the 3.0 x 12 noncompliant balloon times 3 at a maximum of 16 stas. Final angiography revealed PAOLO 3 flow, no edge dissection, and appropriate stent expansion. Next all equipment was removed and hemostasis was achieved by TR band. Findings: Anatomy/Hemodynamics: RCA: mid 70-80% with distal aneurysmal segment prior to bifurcation PDA:luminal irregularities PLV:luminal irregularities Contrast used:45 mL Medications used: Versed 1 Fentanyl 25 Radial cocktail: heparin 2000 units, NTG 200mcg, verapamil 2.5mg Angiomax Plavix 300mg Equipment used: 6 [place] guide BMW angioplasty wire 2 x 12 balloon Resolute Immaculata 2.75 x 18 drug eluting stent 3.0 x 12 noncompliant balloon Estimated blood loss<10 mL. Specimen: none Grafts/implants: none Complications: none Assessment: Staged PCI of mid RCA s/p anterior STEMI with PCI of LAD and OM Plan: -continue ASA 81mg lifelong -plavix 75mg daily at least one year SHARIF VELASQUEZ Dec 22, 2018 08:12
--- NOTE | 2018-12-22 08:16 | CONS ---
Assessment/Plan Assessment/Plan Hospital Course (Demo Recall) Anterior STEMI: s/p PCI of prox LAD 12/20. EF 45% CAD: s/p PCI of prox OM 12/20 as well. Residual mid RCA s/p staged PCI 12/22 Tobacco use -ASA 81mg lifelong -plavix 75mg daily -lipitor 80mg -metoprolol succ 25mg daily as tolerated -d/c lisinopril 5mg daily due to hypotension Plan for d/c tomorrow Consultation Date/Type/Reason Admit Date/Time Dec 20, 2018 at 12:36 Initial Consult Date 12/20/18 Type of Consult Cardiology Requesting Provider: TOSHIA LITTLE MD Date/Time of Note DATE: 12/22/18 TIME: 08:14 24 HR Interval Summary Free Text/Dictation post PCI of RCA this am. No complaints Exam/Review of Systems Vital Signs Vitals Vital Signs Date Temp Pulse Resp B/P (MAP) Pulse Ox O2 O2 Flow FiO2 Time Delivery Rate 12/22/18 98.4 66 18 91/55 (67) 97 Room Air 04:00 12/20/18 1.0 14:00 Intake and Output 12/21/18 12/21/18 12/22/18 1515:00 23:00 07:00 IntakeIntake Total 200 ml 700 ml 200 ml OutputOutput Total 600 ml BalanceBalance -400 ml 700 ml 200 ml Exam Constitutional: alert, oriented Psych: no complaints, nl mood/affect Head: normocephalic, atraumatic Neck: supple; No jvd Respiratory: clear to auscultation; No crackles/rales Cardiovascular: regular rate and rhythm; No edema Gastrointestinal: soft, non-tender; No distended Neurological: nl mental status, nl speech Labs Result Diagram: 12/21/18 0444 12/21/18 0443 Medications Medications Current Medications Nitroglycerin (Nitroglycerin (Sl Tab) 0.4 Mg) 1 tab Q5M UP TO 3 DOSES PRN SL .CHEST PAIN; Start 12/20/18 at 09:30 Aspirin (Aspirin) 81 mg DAILY PO Last administered on 12/22/18at 06:40; Admin Dose 81 MG; Start 12/21/18 at 09:00 Atorvastatin Calcium (Lipitor) 80 mg QHS PO Last administered on 12/21/18at 21:46; Admin Dose 80 MG; Start 12/20/18 at 21:00 Metoprolol Succinate (Toprol Xl) 25 mg DAILY PO Last administered on 12/21/18at 08:40; Admin Dose 25 MG; Start 12/20/18 at 11:30 IV Flush (NS 3 ml) 3 ml PER PROTOCOL IV ; Start 12/20/18 at 13:00 Ondansetron HCl (Zofran Inj) 4 mg Q6H PRN IV NAUSEA/VOMITING; Start 12/20/18 at 13:00 Acetaminophen (Tylenol Tab) 650 mg Q6H PRN PO .PAIN 1-3 OR TEMP; Start 12/20/18 at 13:00 Acetaminophen/ Hydrocodone Bitart ([place] (5/325)) 1 tab Q6H PRN PO .MOD PAIN 4- 6; Start 12/20/18 at 13:00 Morphine Sulfate (morphine) 2 mg Q4H PRN IV .SEVERE PAIN 7-10; Start 12/20/18 at 13:00 Docusate Sodium (Colace) 100 mg Q12H PRN PO .CONSTIPATION; Start 12/20/18 at 13:00 Magnesium Hydroxide (Milk Of Mag) 30 ml DAILY PRN PO .CONSTIPATION; Start 12/20/18 at 13:00 Albuterol/ Ipratropium (Duoneb) 3 ml Q4H RESP THERAPY PRN HHN SHORTNESS OF BREATH; Start 12/20/18 at 13:00 Nicotine (Nicoderm 21 Mg/ 24hr) 1 patch DAILY TRANSDERM ; Start 12/20/18 at 17:00 Clopidogrel Bisulfate (plaVIX) 75 mg DAILY PO ; Start 12/22/18 at 07:00 SHARIF JARQUIN Dec 22, 2018 08:16
--- NOTE | 2018-12-22 11:50 | PN ---
Date/Time of Note Date/Time of Note DATE: 12/22/18 TIME: 11:47 Assessment/Plan VTE Prophylaxis Risk score (from Nsg)>0 risk: 2 SCD applied (from Nsg): Yes Pharmacological prophylaxis: other Lines/Catheters IV Catheter Type (from Nrsg): Peripheral IV Urinary Cath still in place: No Assessment/Plan Hospital Course S: Patient had heart cath procedure performed again this morning for RCA occlusion. No acute events overnight. O: VS - see below PE: Constitutional: alert, oriented, no acute distress presently Psych: no complaints, nl mood/affect Head: normocephalic, atraumatic Neck: No jvd Respiratory: clear to auscultation, diminished breath sounds Cardiovascular: regular rate and rhythm; No edema, No systolic murmur Gastrointestinal: soft, non-tender; No distended Neurological: no focal deficits A. Left heart cath: December 20, 2018: Anterior STEMI: s/p PCI of prox LAD CAD: s/p PCI of prox OM as well. B. Repeat heart cath December 22, 2018: Procedures Performed: Balloon angioplasty and stenting of the mid RC A with a [place] 2.75 x 18 stent. Assessment and plan: 48-year-old male with positive smoking history presenting with chest pain found with ST elevation [place] status post stent placement to the circumflex and LAD this admission. #Chest pain: Secondary to ST elevation TN. Again status post left heart catheterization and stenting performed to the LAD and circumflex artery 2 days ago, and again today to the RCA occlusion. -Monitor, follow-up cardiology recommendations, monitor vital signs very carefully -continue aspirin, Plavix, statin, as well as BEATRICE inhibitor beta-alison -Nicotine patch for smoking history -although again patient refused this earlier #Smoking history: Patient strongly encouraged to quit smoking especially given ST elevation TN event - nicotine patch ordered Result Diagram: 12/21/18 0444 12/21/18 0443 Exam/Review of Systems Exam Vitals Vital Signs Date Temp Pulse Resp B/P (MAP) Pulse Ox O2 O2 Flow FiO2 Time Delivery Rate 12/22/18 98.7 70 18 92/61 (71) 98 Room Air 11:05 12/20/18 1.0 14:00 Intake and Output 12/21/18 12/21/18 12/22/18 1515:00 23:00 07:00 IntakeIntake Total 200 ml 700 ml 200 ml OutputOutput Total 600 ml BalanceBalance -400 ml 700 ml 200 ml Medications Medication Current Medications Nitroglycerin (Nitroglycerin (Sl Tab) 0.4 Mg) 1 tab Q5M UP TO 3 DOSES PRN SL .CHEST PAIN; Start 12/20/18 at 09:30 Aspirin (Aspirin) 81 mg DAILY PO Last administered on 12/22/18at 06:40; Admin Dose 81 MG; Start 12/21/18 at 09:00 Atorvastatin Calcium (Lipitor) 80 mg QHS PO Last administered on 12/21/18at 21:46; Admin Dose 80 MG; Start 12/20/18 at 21:00 Metoprolol Succinate (Toprol Xl) 25 mg DAILY PO Last administered on 12/21/18at 08:40; Admin Dose 25 MG; Start 12/20/18 at 11:30 IV Flush (NS 3 ml) 3 ml PER PROTOCOL IV ; Start 12/20/18 at 13:00 Ondansetron HCl (Zofran Inj) 4 mg Q6H PRN IV NAUSEA/VOMITING; Start 12/20/18 at 13:00 Acetaminophen (Tylenol Tab) 650 mg Q6H PRN PO .PAIN 1-3 OR TEMP; Start 12/20/18 at 13:00 Acetaminophen/ Hydrocodone Bitart ([place] (5/325)) 1 tab Q6H PRN PO .MOD PAIN 4- 6; Start 12/20/18 at 13:00 Morphine Sulfate (morphine) 2 mg Q4H PRN IV .SEVERE PAIN 7-10; Start 12/20/18 at 13:00 Docusate Sodium (Colace) 100 mg Q12H PRN PO .CONSTIPATION; Start 12/20/18 at 13:00 Magnesium Hydroxide (Milk Of Mag) 30 ml DAILY PRN PO .CONSTIPATION; Start 12/20 at 13:00 Albuterol/ Ipratropium (Duoneb) 3 ml Q4H RESP THERAPY PRN HHN SHORTNESS OF BREATH; Start 12/20/18 at 13:00 Nicotine (Nicoderm 21 Mg/ 24hr) 1 patch DAILY TRANSDERM ; Start 12/20/18 at 17: 00 Clopidogrel Bisulfate (plaVIX) 75 mg DAILY PO ; Start 12/22/18 at 07:00 ANU CORTÉS Dec 22, 2018 11:50
[2018-12-22] MEDS: NICOTINE (21 MG/24 HR) PATCH TRANSDERM SCH (13:07)
[2018-12-22] MEDS: METOPROLOL (XL) 25 MG TAB PO SCH (13:08)
[2018-12-22] MEDS: ATORVASTATIN 80 MG TAB PO SCH (20:57)
[2018-12-23] VITALS: PULSE 66
[2018-12-23 04:00] VITALS: BP 85/49; PULSE 69; PULSE 76; RESP 18
[2018-12-23 07:35] VITALS: BP 96/58; PULSE 73; RESP 20
[2018-12-23 08:00] VITALS: PULSE 67
[2018-12-23] MEDS: ASPIRIN 81 MG TAB PO SCH (08:27)
[2018-12-23] MEDS: CLOPIDOGREL 75 MG TAB PO SCH (08:27)
[2018-12-23] MEDS: METOPROLOL (XL) 25 MG TAB PO SCH (08:27)
[2018-12-23] MEDS: NICOTINE (21 MG/24 HR) PATCH TRANSDERM SCH (08:27)
--- NOTE | 2018-12-23 09:14 | CONS ---
Assessment/Plan Assessment/Plan Hospital Course (Demo Recall) Anterior STEMI: s/p PCI of prox LAD 12/20. EF 45% CAD: s/p PCI of prox OM 12/20 as well. Residual mid RCA s/p staged PCI 12/22 Tobacco use Ok for d/c. I have given him his prescription for below meds -ASA 81mg lifelong -plavix 75mg daily -lipitor 80mg -metoprolol succ 25mg daily -no ACEI/ARB due to hypotension. Can be considered as outpt Consultation Date/Type/Reason Admit Date/Time Dec 20, 2018 at 12:36 Initial Consult Date 12/20/18 Type of Consult Cardiology Requesting Provider: TOSHIA LITTLE MD Date/Time of Note DATE: 12/23/18 TIME: 09:13 24 HR Interval Summary Free Text/Dictation No events. No complaints. No chest pain. Ambulated without issues Exam/Review of Systems Vital Signs Vitals Vital Signs Date Temp Pulse Resp B/P (MAP) Pulse Ox O2 O2 Flow FiO2 Time Delivery Rate 12/23/18 98.6 73 20 96/58 (71) 96 Room Air 07:35 12/20/18 1.0 14:00 Intake and Output 12/22/18 12/22/18 12/23/18 1515:00 23:00 07:00 IntakeIntake Total 500 ml 400 ml BalanceBalance 500 ml 400 ml Exam Constitutional: alert, oriented Psych: no complaints, nl mood/affect Head: normocephalic, atraumatic Neck: supple; No jvd Respiratory: clear to auscultation; No crackles/rales Cardiovascular: regular rate and rhythm; No edema, No systolic murmur Gastrointestinal: soft, non-tender; No distended Neurological: nl mental status, nl speech Labs Result Diagram: 12/23/18 0634 12/23/18 0634 Results 24hrs Laboratory Tests Test 12/22/18 13:43 12/23/18 06:34 White Blood Count 8.7 # 10.3 Red Blood Count 3.94 L 4.04 L Hemoglobin 12.8 L 13.2 L Hematocrit 37.1 L 38.0 L Mean Corpuscular Volume 94.2 94.1 Mean Corpuscular Hemoglobin 32.5 32.7 Mean Corpuscular Hemoglobin Concent 34.5 34.7 Red Cell Distribution Width 12.5 12.5 Platelet Count 257 275 Mean Platelet Volume 10.6 H 10.5 H Immature Granulocytes % 0.300 0.400 Neutrophils % 56.7 65.0 Lymphocytes % 33.1 24.0 Monocytes % 6.3 7.0 Eosinophils % 3.0 2.9 Basophils % 0.6 0.7 Nucleated Red Blood Cells % 0.0 0.0 Immature Granulocytes # 0.030 0.040 H Neutrophils # 4.9 6.7 Lymphocytes # 2.9 2.5 Monocytes # 0.6 0.7 Eosinophils # 0.3 0.3 Basophils # 0.1 0.1 Nucleated Red Blood Cells # 0.0 0.0 Sodium Level 141 141 Potassium Level 3.9 4.4 Chloride Level 110 111 H Carbon Dioxide Level 23 23 Anion Gap 8 7 Blood Urea Nitrogen 14 11 Creatinine 0.68 0.75 Est Glomerular Filtrat Rate mL/min > 60 > 60 Glucose Level 125 123 Calcium Level 8.6 9.2 Medications Medications Current Medications Nitroglycerin (Nitroglycerin (Sl Tab) 0.4 Mg) 1 tab Q5M UP TO 3 DOSES PRN SL .CHEST PAIN; Start 12/20/18 at 09:30 Aspirin (Aspirin) 81 mg DAILY PO Last administered on 12/23/18at 08:27; Admin Dose 81 MG; Start 12/21/18 at 09:00 Atorvastatin Calcium (Lipitor) 80 mg QHS PO Last administered on 12/22/18at 20:57; Admin Dose 80 MG; Start 12/20/18 at 21:00 Metoprolol Succinate (Toprol Xl) 25 mg DAILY PO Last administered on 12/23/18at 08:27; Admin Dose 25 MG; Start 12/20/18 at 11:30 IV Flush (NS 3 ml) 3 ml PER PROTOCOL IV ; Start 12/20/18 at 13:00 Ondansetron HCl (Zofran Inj) 4 mg Q6H PRN IV NAUSEA/VOMITING; Start 12/20/18 at 13:00 Acetaminophen (Tylenol Tab) 650 mg Q6H PRN PO .PAIN 1-3 OR TEMP; Start 12/20/18 at 13:00 Acetaminophen/ Hydrocodone Bitart ([place] (5/325)) 1 tab Q6H PRN PO .MOD PAIN 4- 6; Start 12/20/18 at 13:00 Morphine Sulfate (morphine) 2 mg Q4H PRN IV .SEVERE PAIN 7-10; Start 12/20/18 at 13:00 Docusate Sodium (Colace) 100 mg Q12H PRN PO .CONSTIPATION; Start 12/20/18 at 13:00 Magnesium Hydroxide (Milk Of Mag) 30 ml DAILY PRN PO .CONSTIPATION; Start 12/20/18 at 13:00 Albuterol/ Ipratropium (Duoneb) 3 ml Q4H RESP THERAPY PRN HHN SHORTNESS OF BREATH; Start 12/20/18 at 13:00 Nicotine (Nicoderm 21 Mg/ 24hr) 1 patch DAILY TRANSDERM Last administered on 12/23/18at 08:27; Admin Dose 1 PATCH; Start 12/20/18 at 17:00 Clopidogrel Bisulfate (plaVIX) 75 mg DAILY PO Last administered on 12/23/18at 08:27; Admin Dose 75 MG; Start 12/22/18 at 07:00 SHARIF JARQUIN Dec 23, 2018 09:14
--- NOTE | 2018-12-23 09:37 | PDOCDIS ---
Discharge Instructions CONDITION [id number] Patient Condition: [id number] Stable HOME CARE INSTRUCTIONS: [id number] Diet Instructions: [id number] Low Fat /Cholesterol ACTIVITY: [id number] Activity Restrictions: [id number] Slowly Increase Activity Rest between Activity Avoid heavy lifting FOLLOW UP/APPOINTMENTS Follow-up Plan Please stop smoking, take your medications as prescribed, see your doctor in the clinic in the next 1 week. ANU CORTÉS Dec 23, 2018 09:37
[2018-12-23] MEDS ORDERED: METO-335 PO (09:39)
[2018-12-23] MEDS ORDERED: ATOR-2 PO (09:39)
[2018-12-23] MEDS ORDERED: CLOP75TA28 PO (09:39)
[2018-12-23] MEDS ORDERED: ASPI-831 PO (09:39)
--- NOTE | 2018-12-23 09:41 | DS ---
Date/Time of Note Date/Time of Note DATE: 12/23/18 TIME: 09:39 Discharge Summary Admission/Discharge Info Admit Date/Time Dec 20, 2018 at 12:36 Discharge Date/Time Discharge Diagnosis #Chest pain: Secondary to ST elevation [place]. Again status post left heart cath eterization and stenting performed to the LAD and circumflex artery, as well as to the RCA occlusion. #Smoking history: Patient strongly encouraged to quit smoking especially given ST elevation [place] event Patient Condition: Stable Procedures A. Left heart cath: December 20, 2018: Anterior STEMI: s/p PCI of prox LAD CAD: s/p PCI of prox OM as well. B. Repeat heart cath December 22, 2018: Procedures Performed: Balloon angioplasty and stenting of the mid RC A with a Siddharth 2.75 x 18 stent. Hx of Present Illness 48-year-old male with likely [id number] smoking history minimum who presents with chest pain. Pain started earlier today, substernal in nature. The pain was left-sided. The pain was described as constant and pressure-like. No fever chills, diarrhea constipation, nausea vomiting, or upper or lower GI bleeding. He has never had a heart attack before. He does not currently have a primary doctor. No prior history of any stroke or heart attack. The patient was brought in by ambulance. He was given aspirin and nitroglycerin by paramedics. When he arrived he was found ST elevation [place] and patient was seen by certified technician specialist immediately who took the patient for left heart catheterization. Patient had PCI of prox LAD And PCI of prox OM as well today. Of note, patient also found with residual RCA which will be treated medically for now with possible staged PCI as outpt unless symptoms prior to discharge, per cardiology recommendations. Hospital Course Patient was admitted and seen by cardiology team during this hospital stay. He underwent left heart catheterization and had PCI of proximal LAD performed. Afterwards he was monitored in the intensive care unit. He was strongly enco uraged to stop smoking although he did refuse nicotine patch. Over the course of his hospital stay his vital signs remained stable, he was able to emboli, tolerated p.o. diet. The day before discharge he went back and had another catheterization procedure and had stenting and angioplasty performed to his RCA occlusion. Patient tolerated both procedures well. After getting clearance from the cardiology team he will be discharged home today in an improved condition. See below for list of discharge medications. Home Meds Active Scripts Aspirin (Aspirin) 81 Mg Chew, 81 MG PO DAILY, #30 TAB 3 Refills Prov:ANU CORTÉS S. 12/23/18 Metoprolol Succinate* (Toprol XL*) 25 Mg Tab.sr.24h, 25 MG PO DAILY, #30 3 Refills Prov:ANU CORTÉS S. 12/23/18 Atorvastatin* (Atorvastatin*) 80 Mg Tablet, 80 MG PO QHS, #30 TAB 3 Refills Prov:ANU CORTÉS S. 12/23/18 Clopidogrel Bisulfate (Clopidogrel) 75 Mg Tablet, 75 MG PO DAILY, #30 TAB 3 Refills Prov:ANU CORTÉS S. 12/23/18 Follow-up Plan Please stop smoking, take your medications as prescribed, see your doctor in the clinic in the next 1 week. Primary Care Provider Care Physician No Primary Time spent on discharge: > 30 minutes Pending Labs Laboratory Tests Test 12/22/18 13:43 12/23/18 06:34 White Blood Count 8.7 10^3/ul (4.8-10.8) 10.3 10^3/ul (4.8-10.8) Red Blood Count 3.94 10^6/ul (4.70-6.10) 4.04 10^6/ul (4.70-6.10) Hemoglobin 12.8 g/dl (14.0-18.0) 13.2 g/dl (14.0-18.0) Hematocrit 37.1 % (42.0-52.0) 38.0 % (42.0-52.0) Mean Corpuscular Volume 94.2 fl (82.0-101.0) 94.1 fl (82.0-101.0) Mean Corpuscular 32.5 pg (29.0-33.0) 32.7 pg (29.0-33.0) Hemoglobin Mean Corpuscular 34.5 g/dl (32.0-37.0) 34.7 g/dl (32.0-37.0) Hemoglobin Concent Red Cell Distribution 12.5 % (11.5-14.5) 12.5 % (11.5-14.5) Width Platelet Count 257 10^3/UL (140-415) 275 10^3/UL (140-415) Mean Platelet Volume 10.6 fl (7.4-10.4) 10.5 fl (7.4-10.4) Immature Granulocytes % 0.300 % (0.001-0.429) 0.400 % (0.001-0.429) Neutrophils % 56.7 % (39.0-77.0) 65.0 % (39.0-77.0) Lymphocytes % 33.1 % (15.0-51.0) 24.0 % (15.0-51.0) Monocytes % 6.3 % (0.0-11.0) 7.0 % (0.0-11.0) Eosinophils % 3.0 % (0.0-7.0) 2.9 % (0.0-7.0) Basophils % 0.6 % (0.0-2.0) 0.7 % (0.0-2.0) Nucleated Red Blood Cells 0.0 /100WBC (0.0-0.0) 0.0 /100WBC (0.0-0.0) % Immature Granulocytes # 0.030 10^3/ul (0.0-0.031) 0.040 10^3/ul (0.0-0.031) Neutrophils # 4.9 10^3/ul (1.6-7.5) 6.7 10^3/ul (1.6-7.5) Lymphocytes # 2.9 10^3/ul (0.8-2.9) 2.5 10^3/ul (0.8-2.9) Monocytes # 0.6 10^3/ul (0.3-0.9) 0.7 10^3/ul (0.3-0.9) Eosinophils # 0.3 10^3/ul (0.0-0.5) 0.3 10^3/ul (0.0-0.5) Basophils # 0.1 10^3/ul (0.0-0.1) 0.1 10^3/ul (0.0-0.1) Nucleated Red Blood Cells 0.0 10^3/ul (0.0-0.0) 0.0 10^3/ul (0.0-0.0) # Sodium Level 141 mmol/L (135-144) 141 mmol/L (135-144) Potassium Level 3.9 mmol/L (3.5-5.1) 4.4 mmol/L (3.5-5.1) Chloride Level 110 mmol/L (97-110) 111 mmol/L (97-110) Carbon Dioxide Level 23 mmol/L (21-31) 23 mmol/L (21-31) Anion Gap 8 (5-13) 7 (5-13) Blood Urea Nitrogen 14 mg/dl (7-20) 11 mg/dl (7-20) Creatinine 0.68 mg/dl (0.61-1.24) 0.75 mg/dl (0.61-1.24) Est Glomerular Filtrat > 60 mL/min (>60) > 60 mL/min (>60) Rate mL/min Glucose Level 125 mg/dl (70-220) 123 mg/dl (70-220) Calcium Level 8.6 mg/dl (8.4-10.2) 9.2 mg/dl (8.4-10.2) ANU CORTÉS Dec 23, 2018 09:41
== END 2018-12-23 11:15 | disposition home or self-care (01) | DRG 247 ==
LOC: E/R 09:09 → SDS 09:30 → CCL 09:30 → ICU 11:34 → SUATTDRO 12:33 → ICU 12:36 → CCL 12:36 → TEL 12-21 14:20
PROVIDERS: ADMIT Hospitalist; ATTEND Hospitalist
PROC: B211YZZ Fluoroscopy of Multiple Coronary Arteries using Other Contrast (ICD-10-PCS; 2018-12-20)
PROC: 027135Z Dilation of Coronary Artery, Two Arteries with Two Drug-eluting Intraluminal Devices, Percutaneous Approach (ICD-10-PCS; principal; 2018-12-20 11:00)
PROC: 4A023N7 Measurement of Cardiac Sampling and Pressure, Left Heart, Percutaneous Approach (ICD-10-PCS; 2018-12-20 11:00)
PROC: 027034Z Dilation of Coronary Artery, One Artery with Drug-eluting Intraluminal Device, Percutaneous Approach (ICD-10-PCS; 2018-12-22)
DX: I21.09 ST elevation (STEMI) myocardial infarction involving other coronary artery of anterior wall (principal); I25.10 Atherosclerotic heart disease of native coronary artery without angina pectoris; F17.210 Nicotine dependence, cigarettes, uncomplicated
CPT/HCPCS: 36415; 71045; 80048; 80061; 82550; 82553; 83036; 83735; 84100; 84439; 84443; 84484; 85025; 87081; 92928; 92929; 93005; 93306; 93458; 97161; C1725; C1760; C1874; C1887; C1894; C9606; J0583; J1644; J2250; J3010; Q9967